=== PATIENT | male | born 1980 | race Hispanic/Latino ===

== ENCOUNTER 2025-08-02 17:49 | Emergency (ER) | payer SELFPAY ==
[~2025-08-02] VITALS: Ht 165.1 cm; Wt 63.5 kg
--- NOTE | 2025-08-02 17:55 | ERN ---
ED Note History of Present Illness Stated Complaint: SWELLING OF THE HAND Chief Complaint: Hand Problem/Injury Time Seen by MD: 17:51 Dictation: PATIENT IS A 44-YEAR-OLD MALE COMING IN TODAY WITH COMPLAINTS OF RIGHT HAND PAIN SWELLING ONSET EARLIER TODAY WHEN HE PUNCHED A WALL. HE STATES HE WAS JUST PLAYING AROUND NO PRIMARY CARE DOCTOR HAS NOT TAKEN ANYTHING PRIOR TO ARRIVAL FOR PAIN. Allergies: Coded Allergies: No Known Drug Allergies (Unverified Allergy, Unknown, 08/02/25) Past Medical History Past Medical History: No Pertinent History Surgical History: Appendectomy RN Note Reviewed/Agreed w/PFSH: Yes Review of System Dictation CONSTITUTIONAL: NEGATIVE EXCEPT FOR HPI HEAD/FACE: NEGATIVE EXCEPT FOR HPI EENT: NEGATIVE EXCEPT FOR HPI RESPIRATORY: NEGATIVE EXCEPT FOR HPI GASTROINTESTINAL/ABDOMINAL: NEGATIVE EXCEPT FOR HPI GENITOURINARY: NEGATIVE EXCEPT FOR HPI MUSCULOSKELETAL: NEGATIVE EXCEPT FOR HPI RIGHT HAND PAIN SWELLING 5TH METACARPAL INTEGUMENTARY: NEGATIVE EXCEPT FOR HPI NEUROLOGICAL/PSYCH: NEGATIVE EXCEPT FOR HPI HEMATOLOGIC/LYMPHATIC: NEGATIVE EXCEPT FOR HPI ALL SYSTEMS NEGATIVE, EXCEPT NOTED ABOVE. 13 POINT REVIEW OF SYSTEMS ASSESSED AND ALL NEGATIVE EXCEPT FOR ABOVE. Initial Vital Sign VS Vital Signs Date Time Temp Pulse Resp B/P (MAP) Pulse Ox O2 Delivery O2 Flow Rate FiO2 08/02/25 17:51 98.1 82 20 124/79 99 Room Air Physical Exam Dictation VITAL SIGNS REVIEWED GENERAL APPEARANCE: ALERT, ORIENTED X 3, N MODERATE ACUTE DISTRESS, WELL DEVELOPED, NOURISHED. HEAD AND FACE: NON-TRAUMATIC. EYES: PERRL, PINK CONJUNCTIVAS, EYELID NO TRAUMA, ANTERIOR CHAMBER WITH ARCUS SENILIS. EARS: PINNAS INTACT AND NO SIGNS OF TRAUMA OR ERYTHEMA EAR CANALS CLEAR AND NO DISCHARGE TM NO ERYTHEMA NOSE: NO DISCHARGE, NO BLEEDING. OROPHARYNX: MOUTH NORMAL, TONGUE PINK, PHARYNX CLEAR,NO ERYTHEMA, TONSILS NO EXUDATES, NO ABSCESSES NOTED, MUCOUS MEMBRANE MOIST NECK: SUPPLE, NON-TENDER, NO THYROMEGALY, NO MASSES, NO JVD, NO BRUITS BREAST:DEFERRED CHEST:NO TENDERNESS, NO CREPITUS, NO PARADOXICAL MOVEMENT, NO RETRACTIONS LUNGS:CLEAR, WELL-VENTILATED, SYMMETRIC, NO RALES, NO WHEEZING, NO RHONCHI, NO STRIDOR, GOOD BREATH SOUNDS BILATERALLY HEART: REGULAR RATE, REGULAR RHYTHM, NO MURMUR, NO GALLOPS VASCULAR: NO PERIPHERAL EDEMA, ABDOMEN: SOFT, POSITIVE BOWEL SOUNDS, NONDISTENDED, NO GUARDING, NONTENDER, NO REBOUND, NO MASSES NO HEPATOMEGALY, NO SPLENOMEGALY, NO BOUDREAUX'S SIGN, NO HERNIAS. RECTAL: DEFERRED GENITAL: DEFERRED NEUROLOGICAL: NORMAL SPEECH, MOTOR FUNCTION INTACT, SENSORY FUNCTION INTACT MUSCULOSKELETAL: NECK NONTENDER, FULL RANGE OF MOTION, BACK NONTENDER, FULL RANGE OF MOTION, EXTREMITIES: SWELLING TENDERNESS TO RIGHT 5TH METACARPAL. DECREASED RANGE OF MOTION SECONDARY TO PAIN. NEUROVASCULAR INTACT. SKIN: COLOR PINK, DRY, NO TURGOR, NO RASH, NO LACERATIONS, NO ABRASIONS, NO CONTUSIONS. LYMPHATIC: DEFERRED Results (Laboratory/Radiology) Laboratory/Radiology PATIENT HAS A SUBTLE LEFT 5TH METACARPAL FRACTURE Labs Reviewed?: Yes ED Course ED Course Orders Procedure Category Date Status Time Hand 3+Vws Rt RAD 08/02/25 Taken 17:53 Apply Ice Pack To: CPOE 08/02/25 Transmitted (Er) 17:53 Ibuprofen 800 Mg Tab PHA 08/02/25 Complete (Motrin) 18:00 Boxer Splint [email or web address] 08/02/25 Verified 18:48 Sling BARBI 08/02/25 Verified 18:48 Current Medications Medications (Trade) Dose Ordered Sig/Maxine Route PRN Reason Start Time Stop Time Status Last Admin Dose Admin Ibuprofen (moTRIN) 800 mg ONCE ONCE PO 08/02/25 18:00 08/02/25 18:01 DC Vital Signs Date Time Temp Pulse Resp B/P (MAP) Pulse Ox O2 Delivery O2 Flow Rate FiO2 08/02/25 17:51 98.1 82 20 124/79 99 Room Air 1850/PATIENT HAS A SUBTLE NONDISPLACED DISTAL RIGHT 5TH METACARPAL FRACTURE. ULNAR GUTTER SPLINT WAS APPLIED BY [email or web address] WITH DISTAL NEUROVASCULAR CMS INTACT POST PLACEMENT PATIENT IS AWARE TO FOLLOW UP WITH HIS DOCTOR TOMORROW FOR R EFERRAL TO ORTHOPEDIC Medical Decision Making MDM MEDICAL DECISION-MAKING BASED ON HPI AND X-RAY OF RIGHT HAND. PATIENT HAS A RIGHT 5TH METACARPAL FRACTURE ULNAR GUTTER SPLINT PLACED BY [email or web address] NEUROVASCULAR CMS INTACT POST PLACEMENT PATIENT GIVEN RICE INSTRUCTIONS AND TOLD TO SEE HIS PRIMARY CARE DOCTOR FOR REFERRAL DX & DISP Disposition: Discharge Departure Impression: Primary Impression: Displaced fracture of neck of right fifth metacarpal bone Condition: Stable Scripts Ibuprofen (Ibuprofen 800 mg Tab) 800 Mg Tab 800 MG PO Q8H PRN for fever or pain, #30 TAB 0 Refills Prov: BALJIT BRODERICK 08/02/25 Additional Instructions: FOLLOW-UP WITH PRIMARY CARE PROVIDER IN 1 TO 2 DAYS. TAKE MEDICATIONS DIRECTED HERE IN THE EMERGENCY ROOM. OKAY TO CONTINUE HOME MEDICATIONS UNLESS OTHERWISE DISCUSSED DURING YOUR VISIT IN THE EMERGENCY ROOM TODAY. RETURN TO YOUR NEAREST EMERGENCY ROOM IF SYMPTOMS WORSEN OR IF THERE IS NO IMPROVEMENT. CALL 911 IF YOU NEED IMMEDIATE ASSISTANCE. TAKE TYLENOL OR MOTRIN [id number] NEEDED AND IF NO CONTRAINDICATIONS ARE PRESENT. INCREASE ORAL HYDRATION. A WOUND CULTURE OR URINE CULTURE WAS ORDERED HERE IN THE EMERGENCY ROOM DEPARTMENT PLEASE FOLLOW-UP WITH PRIMARY CARE PROVIDER AND ADVISE THEM TO GET REPEAT PORTS FROM OUR FACILITY. IF YOU HAD ANY LINO WRAP/SPLINTS THAT WERE APPLIED HERE, PLEASE DO NOT REMOVE THEM UNTIL YOU SEE YOUR PRIMARY CARE OR SPECIALTY. SPLINT AND NO WEIGHT-BEARING UNTIL CLEARED BY ORTHOPEDICS, SEE YOUR PRIMARY CARE DOCTOR TOMORROW FOR REFERRAL. COOL COMPRESSES TO PAIN THREE TO 4 TIMES A DAY. TAKE IBUPROFEN NEEDED FOR PAIN WITH FOOD. NO WORK WITH RIGHT HAND UNTIL CLEARED BY ORTHOPEDICS. Time of Disposition: 18:51 I have reviewed the case, and I agree with, Diagnosis and Plan BALJIT BRODERICK Aug 02, 2025 17:55
[2025-08-02] MEDS ORDERED: IBUP-2077 PO (18:51)
--- NOTE | 2025-08-02 19:43 | HMCIMG ---
EXAM: CR right Hand, 3 View. CLINICAL HISTORY: RIGHT 5TH METACARPAL PAIN SWELLING AFTER PUNCHING A WALL COMPARISON: None provided. FINDINGS: BONES: No acute osseous pathology evident. JOINTS: No evidence of dislocation. The joint spaces are normal. SOFT TISSUES: Soft tissue edema overlying the fifth metacarpal. Punctate radiopacity noted may reflect an external object; however clinical correlation is advised to exclude a foreign body. IMPRESSION: 1. No acute osseous injury. 2. Soft tissue edema overlying the fifth metacarpal with punctate radiopacity noted, possibly reflecting an external object or foreign body. Clinical correlation advised. /[place]
[2025-08-02 19:47] VITALS: BP 127/84; PULSE 78; RESP 20; TEMP 98.1; O2SAT 99
--- NOTE | 2025-08-02 19:50 | NUR ---
RT HAND BOXER SPLINT APPLIED, PT TOLERATED WELL
== END 2025-08-02 20:05 | disposition home or self-care (01) ==
LOC: EDH 17:49
DX: S62.336A Displaced fracture of neck of fifth metacarpal bone, right hand, initial encounter for closed fracture (principal); Z90.49 Acquired absence of other specified parts of digestive tract; W22.01XA Walked into wall, initial encounter; Y93.89 Activity, other specified; Y92.89 Other specified places as the place of occurrence of the external cause; Y99.8 Other external cause status
CPT/HCPCS: 29125; 73130; 99283